=== PATIENT | female | born 1945 | race Caucasian/White ===

== ENCOUNTER 2019-12-30 06:15 | Day surgery (SDC) | payer OTHER, BC ==
[2019-12-24 11:36] VITALS: BMI 21.1
--- OUTSIDE RECORDS SUMMARY | 2019-12-30 06:18 | XMS ---
:1945 Author Organization [facility] Care Team Providers Name Role Phone Norma Alvarez Unavailable Unavailable Care, Parimutuel Clerk Unavailable Unavailable Marisel Perez Unavailable Unavailable McAleer, A Unavailable Unavailable Garza, E Unavailable Unavailable So Unavailable Unavailable Re-disclosure Warning The records that you are about to access may contain information from federally- assisted alcohol or drug abuse programs. If such information is present, then the following federally mandated warning applies: This information has been disclosed to you from records protected by federal confidentiality rules (42 CFR part 2). The federal rules prohibit you from making any further disclosure of this information unless further disclosure is expressly permitted by the written consent of the person to whom it pertains or as otherwise permitted by 42 CFR part 2. A general authorization for the release of medical or other information is NOT sufficient for this purpose. The Federal rules restrict any use of the information to criminally investigate or prosecute any alcohol or drug abuse patient.The records that you are about to access may contain highly sensitive health information, the redisclosure of which is protected by Article 27-F of the [facility] Public Health law. If you continue you may haveaccess to information: Regarding HIV / AIDS; Provided by facilities licensed or operated by the [facility] Office of Mental Health; or Provided by the [facility] Office for People With Developmental Disabilities. If such information is present, then the following [facility] mandated warning applies: This information has been disclosed to you from confidential records which are protected by state law. State law prohibits you from making any further disclosure of this information without the specific written consent of the person to whom it pertains, or as otherwise permitted by law. Any unauthorized further disclosure in violation of state law may result in a fine or residential sentence or both. A general authorization for the release of medical or other information is NOT sufficient authorization for further disclosure. Allergies and Adverse Reactions Type Description Substance Reaction Status Data Source(s ) 3 NO KNOWN ALLERGIES Clindamycin 150 MG Oral NEXTGEN ([facility] Tablet [Clintabs] [facility]) Encounters Encounter Providers Location Date Indications Data Source(s ) Outpatient Attender: Gracia 12/14/2019 NEXTGEN ( [facility] SoReferrer: Gracia So 09:30:00 AM [facility]) Outpatient Attender: Norma 08/13/2019 NEXTGEN ([facility] [place] 03:39:00 PM [facility]) Outpatient Attender: Gracia 07/13/2019 NEXTGEN ( [facility] SoReferrer: Gracia So 10:00:00 AM [facility]) Outpatient Attender: Gracia 07/10/2019 NEXTGEN ( [facility] SoReferrer: Parimutuel Clerk 04:03:00 PM [facility]) Outpatient Attender: Dana 04/04/2019 NEXTSUZETTE N ([facility] McAleerReferrer: 10:30:[address] [facility]) Outpatient Attender: Gracia Martinez 02/14/2019 NEXTGE N ([facility] 12:03:00 PM [facility]) Outpatient Attender: Norma 02/13/2019 NEXTGEN ([facility] [place] 03:56:00 PM [facility]) Outpatient Attender: Norma 02/13/2019 NEXTGEN ([facility] [place] 03:51:00 PM [facility]) Outpatient Attender: Marisel 02/09/2019 NEXTGE N ([facility] [place] 01:58:00 PM [facility]) Outpatient Attender: Renee 02/09/2019 NEXTGE N ([facility] ChuReferrer: 12:00:00 AM [facility] Marisel Perez [facility]) Outpatient Attender: Norma 01/20/2019 NEXTGEN ([facility] [place] 05:11:00 PM Medical [facility]) Outpatient Attender: Norma 01/20/2019 NEXTGEN ([facility] [place] 12:14:00 PM [facility]) Outpatient Attender: Marisel 01/20/2019 NEXTGE N ([facility] MenellReferrer: 12:00:00 AM [facility] Norma Dweck [facility]) Outpatient Attender: Norma 01/19/2019 NEXTGEN ([facility] [place] 04:05:00 PM Medical [facility]) Outpatient Attender: Gracia 01/14/2019 NEXTGEN ( [facility] SoReferrer: [facility] So [facility]52:[facility] Attender: 12/31/2018 NEXTGEN ([facility] [place] 12:18:00 PM [facility]) Medications Medication Brand Start Product Dose Route Administrative Pharmacy [facility] Indications Reaction Description Data Name Date Form Instructions Instructions Source(s) Atenolol 50 ATENOL 07/12/ TAKE 1 TABLET RP NEXTGEN MG Oral OL 2020 BY MOUTH EVERY ([facility] Tablet 50 12:00: DAY Medical - mg 50 mg 00 AM [facility]) This may be an active medication. No end date is available. Atenolol 50 MG ATENOLOL 02/14/2019 TAKE 1 RP N[facility] Oral Tablet 50 12:00:00 AM EST TABLET BY ([facility] mg 50 mg MOUTH EVERY [facility]) This may be an active medication. No end date is available. Insurance Providers Payer name Policy type Policy ID Covered Covered alliance party's Policy P denise / Coverage alliance party ID relationship to Curiel Inf ormation type curiel BC PPO [id number] SP [id number] MEDICARE [id number] SP [id number] [place] [id number] Plan [facility] Medicare [id number] 1 [id number] Part B Par Providers Problems, Conditions, and Diagnoses Code Display Name Description Problem Type Effective Data Sour ce(s) Dates Z12.31 Encounter for Other screening Diagnosis 08/13/2019 NEXTGE N screening mammogram mammogram 03:39:00 PM ([facility] for malignant EDT Medical - M t neoplasm of breast [facility]) M81.0 Age-related Age-related Diagnosis 07/13/2019 NEXTGEN osteoporosis osteoporosis 10:00:00 AM ([facility] without current without current EDT [facility] pathological pathological [facility] fracture fracture Group ) I10 Essential (primary) Essential Diagnosis 07/13/2019 NEXTG EN hypertension (primary) 10:00:00 AM ([facility] hypertension EDT [facility]) R11.0 Nausea Nausea Diagnosis 07/13/2019 NEXTGEN 10:00:00 AM ([facility] EDT Medical [facility]) R92.1 Mammographic Breast Diagnosis 02/09/2019 NEXTGEN calcification found calcification seen 01:58:00 PM ([facility] on diagnostic on mammogram EST Medical - Ar imaging of breast [facility] ) Z12.39 Encounter for other Encounter for oth Diagnosis 9 NEXTGEN screening for screening for 12:00:00 AM ([facility] malignant neoplasm malignant neoplasm EST Medical - [place] of breast of breast [facility]) R92.2 Inconclusive Inconclusive Diagnosis 01/20/2019 NEXTGEN mammogram mammogram 12:00:00 AM ([facility] EST Medical - [facility]) Surgeries/Procedures Procedure Description Date Indications Data Source(s) ULTRASOUND BREAST ULTRASOUND BREAST 01/20/2019 NEXTG EN ([facility] COMPLETE COMPLETE 12:00:00 AM Medical [facility]) Results ID Date Data Source [id number] 12/26/2019 12:11:00 PM EDT [facility] Name Value Range Interpretation Description Data Sup porting Code Source(s) Document(s ) SARS [facility] coronavirus 2 RNA This lab was ordered by SHELLEY [facility] and reported by [facility]. Procedure
[2019-12-30] MEDS ORDERED: CIPROFLOXACIN 0.3% EYE DROPS 5 ML BOTTLE ONE (06:27)
[2019-12-30] MEDS ORDERED: CYCLOPENTOLATE 2% OPHTH SOLN 2 ML BOTTLE ONE (06:27)
[2019-12-30] MEDS ORDERED: TROPICAMIDE 1% OPHTH SOLN 15 ML BOTTLE ONE (06:28)
[2019-12-30] MEDS ORDERED: PHENYLEPHRINE 2.5% OPHTH SOLN 15 ML BOTTLE ONE (06:28)
[2019-12-30 06:51] VITALS: TEMP 98.3
[2019-12-30] MEDS ORDERED: BSS (NA/CA/MG/K) BALANCED SALT SOLUTION OPHTH SOLN 15 ML BOTTLE ONE (07:07)
[2019-12-30] MEDS ORDERED: TETRACAINE 0.5% OPHTH SOLN 2 ML BOTTLE ONE (07:07)
[2019-12-30] MEDS ORDERED: LIDOCAINE 1% P/F 10 MG/ML VIAL ONE (07:07)
[2019-12-30] MEDS ORDERED: NEO/POLYMYX B SULF/DEXAMETH OPHTHALMIC 5ML BOTTLE ONE (07:08)
[2019-12-30] MEDS ORDERED: EPINEPHrine/PF 1 MG/1 ML (1:1,000) AMPULE ONE (07:08)
[2019-12-30] MEDS ORDERED: CARBACHOL 0.01% INTRA-OCULAR 1.5 ML VIAL ONE (07:15)
[2019-12-30] MEDS ORDERED: MIDAZOLAM HCL 2 MG/2 ML SINGLE DOSE VIAL ONE (08:03)
--- NOTE | 2019-12-30 08:48 | OP ---
DATE OF OPERATION: 12/30/2019 OPERATIVE PROCEDURE: Lens phacoemulsification with posterior chamber intraocular lens placement right eye. PREOPERATIVE DIAGNOSIS: Visually significant cataract of right eye. POSTOPERATIVE DIAGNOSIS: Visually significant cataract of right eye. SURGEON: Jeremi Vigil M.D. ANESTHESIA: MAC PROCEDURE: The patient was brought to the operating room and placed under monitored anesthesia care by Anesthesia. A drop of tetracaine was then placed over the right eye. The patient was then prepped and draped in the usual sterile manner. A speculum was then placed over the right eye. The eye was then well irrigated with copious amounts of BSS (balanced salt solution). The operating microscope was then moved into position. A paracentesis was performed using a 15 degree blade. At this point 0.5 mL of 1% preservative-free lidocaine was injected into the anterior chamber. Amvisc Plus was then injected into the anterior chamber. A clear corneal incision was then formed using a 2.2 mm keratome. A capsulorrhexis was then performed in a continuous circular fashion beginning with a cystotome and completed with Utrata forceps. Hydrodissection was then performed using BSS on a cannula. The phaco probe was then introduced through the corneal wound and the cataract was removed using the phaco chop technique. Approximately 3 seconds of absolute phaco time was used. The remaining cortex was then removed using irrigation and aspiration with an I/A probe. The capsule was then filled with regular Amvisc and the capsule was noted to be intact. A previously selected foldable posterior chamber intraocular lens was then injected into the capsule through the corneal wound using a lens injector. It was then dialed into position using a [place] hook. The Amvisc was then removed using irrigation and aspiration. Miostat was then injected through the paracentesis to constrict the pupil. The paracentesis and corneal wound were then hydrated and noted to be watertight. A drop of Maxitrol was then placed over the eye. The speculum was removed and clear shield was taped over the eye. The patient tolerated the procedure well and there were no surgical complications. The patient was asked to follow up in my office the next day. JEREMI VIGIL M.D. CLEMENTE/[id number]
[2019-12-30 09:20] VITALS: BP 122/84; PULSE 64
== END 2019-12-30 09:10 | disposition home or self-care (01) ==
LOC: FASU 06:15
PROVIDERS: ATTEND Ophthalmology
PROC: 08RJ3JZ Replacement of Right Lens with Synthetic Substitute, Percutaneous Approach (ICD-10-PCS; principal; 2019-12-30 08:12)
DX: H26.8 Other specified cataract (principal)

== ENCOUNTER 2020-02-10 06:21 | Day surgery (SDC) | payer OTHER, BC ==
[2020-02-02 12:47] VITALS: BMI 21.1
[2020-02-10] MEDS: CIPROFLOXACIN 0.3% EYE DROPS 5 ML BOTTLE ONE ×3 (06:50→07:00)
[2020-02-10] MEDS: TROPICAMIDE 1% OPHTH SOLN 15 ML BOTTLE ONE ×3 (06:50→07:00)
[2020-02-10] MEDS: CYCLOPENTOLATE 2% OPHTH SOLN 2 ML BOTTLE ONE ×3 (06:50→07:00)
[2020-02-10] MEDS: PHENYLEPHRINE 2.5% OPHTH SOLN 15 ML BOTTLE ONE ×3 (06:50→07:00)
[2020-02-10 06:53] VITALS: TEMP 98.2
[2020-02-10] MEDS ORDERED: TETRACAINE 0.5% OPHTH SOLN 2 ML BOTTLE ONE (07:17)
[2020-02-10] MEDS ORDERED: EPINEPHrine/PF 1 MG/1 ML (1:1,000) AMPULE ONE (07:17)
[2020-02-10] MEDS ORDERED: LIDOCAINE 1% P/F 10 MG/ML VIAL ONE (07:17)
[2020-02-10] MEDS ORDERED: CARBACHOL 0.01% INTRA-OCULAR 1.5 ML VIAL ONE (07:18)
[2020-02-10] MEDS ORDERED: NEO/POLYMYX B SULF/DEXAMETH OPHTHALMIC 5ML BOTTLE ONE (07:18)
[2020-02-10] MEDS ORDERED: BSS (NA/CA/MG/K) BALANCED SALT SOLUTION OPHTH SOLN 15 ML BOTTLE ONE (07:18)
[2020-02-10] MEDS ORDERED: MIDAZOLAM HCL 2 MG/2 ML SINGLE DOSE VIAL ONE (07:43)
[2020-02-10] MEDS ORDERED: PROPOFOL 20 ML ONE (07:44)
[2020-02-10] MEDS ORDERED: SUCCINYLCHOLINE CHLORIDE 200 MG/10 ML SYRINGE ONE (07:44)
[2020-02-10 09:12] VITALS: BP 123/70; PULSE 61
== END 2020-02-10 09:15 | disposition home or self-care (01) ==
LOC: FASU 06:21
PROVIDERS: ATTEND Ophthalmology
PROC: 08RK3JZ Replacement of Left Lens with Synthetic Substitute, Percutaneous Approach (ICD-10-PCS; principal; 2020-02-10 08:13)
DX: H26.8 Other specified cataract (principal)